=== PATIENT | male | born 1985 | race Two or more races ===

== ENCOUNTER 2018-08-20 11:17 | Emergency (ER) | payer SELFPAY ==
[~2018-08-20] VITALS: Ht 167.6 cm; Wt 82.0 kg
[2018-08-20] MEDS ORDERED: KETOROLAC 30MG/ML VIAL IV STA (11:41)
[2018-08-20 12:29] LABS: BASOPHILS % 0.5 % (0.0-2.0); EOSINOPHILS % 3.3 % (0.0-5.0); HEMATOCRIT. 40.9 % (42.0-52.0); HEMOGLOBIN. 13.8 g/dL (14.0-18.0); LYMPHOCYTES % 19.1 % (20.0-50.0); MEAN CORPUSCULAR HEMOGLOBIN 29.1 pg (28.0-32.0); MEAN CORPUSCULAR VOLUME 86.3 fL (80.0-94.0); MEAN PLATELET VOLUME 10.1 fl (7.4-10.4); MONOCYTES % 8.6 % (2.0-8.0); NEUTROPHILS % 68.5 % (40.0-76.0); PLATELET 247 x1000/uL (130-400); RED BLOOD CELL COUNT 4.74 mill/uL (4.7-6.1); RED CELL DISTRIBUTION WIDTH 14.3 % (11.6-14.6)
[2018-08-20 12:37] LABS: CHLORIDE 106 mEq/L (98-107)
[2018-08-20] MEDS ORDERED: CEFTRIAXONE 1 G PREMIX 50 ML IV ONE (13:00)
[2018-08-20 13:30] VITALS: BP 133/72
== END 2018-08-20 14:06 | disposition home or self-care (01) ==
LOC: ER 11:17
DX: L03.116 Cellulitis of left lower limb (principal); L60.0 Ingrowing nail; M10.9 Gout, unspecified; F12.10 Cannabis abuse, uncomplicated; F17.200 Nicotine dependence, unspecified, uncomplicated
CPT/HCPCS: 36415; 73630; 80048; 84550; 85025; 96365; 96375; 99284; J0696; J1885; Z7610